=== PATIENT | male | born 1950 | race Caucasian/White ===

== ENCOUNTER 2018-08-31 08:44 | Day surgery (SDC) | payer MEDICARE, OTHER, SELFPAY ==
--- NOTE | 2018-08-30 17:16 | PM.PREOP ---
Pre-operative Note Interval Note Pre-op Check: Yes History & Physical Reviewed by Physician Changes: No
--- NOTE | 2018-08-30 17:16 | PM.OP.1 ---
Operative Date/Time/Diagnoses Date of procedure: 08/31/18 Time of procedure: 10:00 Procedure & Clinicians Procedure: Date of service: August 31 2018 Preoperative diagnoses: 1. Complex nuclear sclerotic and cortical Cataract. 2. 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 3. 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 Postoperative diagnoses: 1. Cataract removed with complex surgery with use of Malyugin ring and posterior chamber intraocular lens implant. Procedure: Phacoemulsification with posterior chamber intraocular lens implant Surgeon: Zahra Veliz MD Complications:None Specimen: None Implant:ZCBOO+23.0 Blood loss: None Anesthesia: Retrobulbar with monitored standby Anesthesiologist: Randall Phoenix M.D. Description of procedure: Patient is a 62 year old male with decreased vision due to cataract which is affecting activities of daily living. He wants surgery to improve vision. He will need complex cataract surgery due to floppy iris syndrome. He has taken to the operating room and given IV sedation. A retrobulbar block insert consisting of 6 cc of 2% xylocaine without epinephrine mixed half and half with 0.5% Marcaine with 1 cc of hyaluronidase added is placed between the medial and lateral 1/3 of the inferior orbital rim. Lid akinesia is obtain with 1% xylocaine with epinephrine infiltrated along the lid margin. The eye is manually massaged for 30 sec, prepped using Betadine solution, and draped in the usual sterile fashion. Temporal approach was made, a 1 mm side-port incision was made at the 12 oclock meridian. Phenylephrine 1.5% mixed with 1% xylocaine 0.2 cc was placed into the anterior chamber. Viscoat followed by Zina was then placed. A 2.6 mm clear incision with a 2.6 mm blade was placed at the 3 oclock meridian. A 7.0 mm Malygin ring was inspected and inserted into the eye in an unfolder. The iris was then sequentially hooked in every quadrant. A 360 degree capsulorrhexis style capsulotomy was then performed with a cystitome needle on a Healon. Hydrodelineation and hydrodissection were performed. The phacoemulsification unit is introduced, and sculpting notice used to groove the central lens. It is then removed in chopping mode. Epi nucleus is removed with epinuclear mode and irrigation aspiration was used to remove the peripheral cortex. The posterior capsule is polished. The intraocular lens is selected, inspected, power confirmed, and placed in the posterior chamber. The Malygin ring was then disinserted from the iris in all quadrants and then removed in its inserting device intact. The pupil was constricted. The wound was stromally hydrated and tested for leaks, there was none and was left sutureless. Vigamox 0.1 cc was placed into the anterior chamber. Kenalog 0.2 cc was placed in the superior subconjunctival space. A drop of antibiotic and was placed and the eye was patched and shielded. The patient was stable and returned to the recovery room in excellent condition. Dictated by: Zahra Veliz MD Copy to: [facility]
[2018-08-31] MEDS: PROPARACAINE 0.5% OPHTH SOL 2 DROPS EYE-OP (10:07)
[2018-08-31] MEDS: CATARACT EYE COMPOUND (10 DROPS/SYRINGE) 3 DROPS EYE-OP (10:14)
[2018-08-31 10:15] VITALS: BMI 26.2
[2018-08-31 10:30] VITALS: BP 102/62; PULSE 63; RESP 16; TEMP 36.4; O2SAT 96
--- NOTE | 2018-08-31 10:32 | SUR.PREOP ---
two sets of drops given per Elpidio/Dr. Veliz.
[2018-08-31] MEDS: BALANCED SALT IRRIG SOLN NO.2 15 ML IRRIG.SOLN IRR (11:44)
[2018-08-31] MEDS: CHONDROIDTIN/SOD HYALURONATE 1.05 ML SYRINGE INTRAOCULA (11:44)
[2018-08-31] MEDS: HYALURONATE SODIUM 10 MG/ML SYRINGE INJ (11:44)
[2018-08-31] MEDS: LIDOCAINE 1% W/EPI INJ 20 ML INJ (11:44)
[2018-08-31] MEDS: MOXIFLOXACIN OPHTH DROPS 3 ML BOTTLE 2 DROPS INJ (11:45)
[2018-08-31] MEDS: NEOMYCIN/POLY/DEX OPHTH OINT 1 APPLIC EYE-LEFT (11:45)
[2018-08-31] MEDS: OFLOXACIN 0.3% OPHTH 5 ML 2 DROPS EYE-LEFT (11:46)
[2018-08-31] MEDS: PHENYLEPHRINE/LIDOCAINE VIAL (OR) 0.2 ML EYE-OP (11:46)
[2018-08-31] MEDS: TRIAMCINOLONE 50 MG/5 ML VIAL INJ (11:46)
[2018-08-31] MEDS: BALANCED SALT IRRIG SOLN NO.2 500 ML, EPINEPHrine 1 MG IRR (11:47)
[2018-08-31] MEDS: LIDOCAINE 2% 4 ML, BUPIVACAINE 0.5% (PF) 4 ML, HYALURONIDASE 150 UNIT INJ (11:47)
[2018-08-31] MEDS: CARBACHOL 1.5 ML VIAL INJ (11:49)
[2018-08-31 12:35] VITALS: BP 100/62; PULSE 64; RESP 20; TEMP 36.6; O2SAT 98
== END 2018-08-31 12:39 | disposition home or self-care (01) ==
LOC: OR 08:49
PROVIDERS: Visit Provider Ophthalmology
PROC: (CPT 66982; principal; 2018-08-31 10:45)
DX: H25.12 Age-related nuclear cataract, left eye (principal); H21.81 Floppy iris syndrome; I50.9 Heart failure, unspecified; I10 Essential (primary) hypertension; I42.9 Cardiomyopathy, unspecified
CPT/HCPCS: 66982; J0171; J2250; J2704; J3010; J3301; J3470

== ENCOUNTER 2018-09-28 07:43 | Day surgery (SDC) | payer MEDICARE, OTHER, SELFPAY ==
--- NOTE | 2018-09-28 07:27 | PM.PREOP ---
Pre-operative Note Interval Note Pre-op Check: Yes History & Physical Reviewed by Physician Changes: No
[2018-09-28] MEDS: PROPARACAINE 0.5% OPHTH SOL 2 DROPS EYE-OP (07:57)
[2018-09-28 07:58] VITALS: BMI 25.9
[2018-09-28 08:06] VITALS: BP 94/59; PULSE 60; RESP 16; TEMP 36.3; O2SAT 98
[2018-09-28] MEDS: CATARACT EYE COMPOUND (10 DROPS/SYRINGE) 3 DROPS EYE-OP (08:10)
[2018-09-28] MEDS: MOXIFLOXACIN OPHTH DROPS 3 ML BOTTLE 2 DROPS INJ ×2 (09:12→09:15)
[2018-09-28] MEDS: HYALURONATE SODIUM 10 MG/ML SYRINGE INJ (09:12)
[2018-09-28] MEDS: OFLOXACIN 0.3% OPHTH 5 ML 2 DROPS EYE-RIGHT (09:12)
[2018-09-28] MEDS: CHONDROIDTIN/SOD HYALURONATE 1.05 ML SYRINGE INTRAOCULA (09:12)
[2018-09-28] MEDS: CARBACHOL 1.5 ML VIAL INJ (09:13)
[2018-09-28] MEDS: BALANCED SALT IRRIG SOLN NO.2 500 ML, EPINEPHrine 1 MG IRR (09:13)
[2018-09-28] MEDS: NEOMYCIN/POLY/DEX OPHTH OINT 1 APPLIC EYE-RIGHT (09:14)
[2018-09-28] MEDS: LIDOCAINE 1% W/EPI INJ 20 ML INJ (09:14)
[2018-09-28] MEDS: BALANCED SALT IRRIG SOLN NO.2 15 ML IRRIG.SOLN IRR (09:15)
[2018-09-28] MEDS: TRIAMCINOLONE 50 MG/5 ML VIAL INJ (09:16)
[2018-09-28] MEDS: LIDOCAINE 2% 4 ML, BUPIVACAINE 0.5% (PF) 4 ML, HYALURONIDASE 150 UNIT INJ (09:16)
[2018-09-28] MEDS: PHENYLEPHRINE/LIDOCAINE VIAL (OR) 0.2 ML EYE-OP (09:16)
[2018-09-28 09:39] VITALS: BP 92/65; PULSE 59; RESP 15; TEMP 36.3; O2SAT 97
--- NOTE | 2018-09-28 11:25 | P.OP_ITS ---
Operative Date/Time/Diagnoses Date of procedure: 09/28/18 Time of procedure: 08:45 Procedure & Clinicians Procedure: Date of service: September 28, 2018 Preoperative diagnoses: 1. Right nuclear sclerotic and cortical Cataract 2. Possible floppy iris syndrome due to the use of sympathomemetics. 3. Restless leg syndrome. Postoperative diagnoses: 1. Cataract removal with phacoemulsification with placement of posterior chamber intraocular lens. Procedure: Phacoemulsification with posterior chamber intraocular lens implant Surgeon: Zahra Veliz MD Complications: None Specimen: None Implant: ZCBOO+20.5 Blood loss: None Anesthesia: Retrobulbar with monitored standby Anesthesiologist: Hi Ohara M.D. Description of procedure: Patient is a male year old with decreased vision due to cataract which is affecting activities of daily living. He wants surgery to improve vision. He has taken to the operating room and given IV sedation. A retrobulbar block insert consisting of 6 cc of 2% xylocaine without epinephrine mixed half and half with 0.5% Marcaine with 1 cc of hyaluronidase added is placed between the medial and lateral 1/3 of the inferior orbital rim. Lid akinesia is obtain with 1% xylocaine with epinephrine infiltrated along the lid margin. The eye is manually massaged for 30 sec, prepped using Betadine solution, and draped in the usual sterile fashion. Temporal approach was made, a 1 mm side-port incision was made at the 7:30 position. Phenylephrine 1.5% mixed with 1% xylocaine 0.2 cc was placed into the anterior chamber. Iris size and tone was adequate and a Malygin ring was not used. Viscoat followed by Zina was then placed. A 2.6 mm clear incision with a 2.6 mm blade was placed at the 170 degree meridian. A 360 degree capsulorrhexis style capsulotomy was then performed with a cystitome needle on a Healon. Hydrodelineation and hydrodissection were performed. The phacoemulsification unit is introduced, and sculpting notice used to groove the central lens. It is then removed in chopping mode. Epi nucleus is removed with epinuclear mode and irrigation aspiration was used to remove the peripheral cortex. The posterior capsule is polished. The intraocular lens is selected, inspected, power confirmed, and placed in the posterior chamber. The pupil was constricted. The wound was stromally hydrated and tested for leaks, there was none and was left sutureless. Vigamox 0.1 cc was placed into the anterior chamber. Kenalog 0.2 cc was placed in the superior subconjunctival space. A drop of antibiotic and was placed and the eye was patched and shielded. The patient was stable and returned to the recovery room in excellent condition. He did have restless leg syndrome during the procedure was able to proceed without complication. Dictated by: Zahra Veliz MD Copy to: [facility] Same procedure as scheduled: Yes
== END 2018-09-28 09:49 | disposition home or self-care (01) ==
PROVIDERS: Visit Provider Ophthalmology
DX: H25.11 Age-related nuclear cataract, right eye (principal)
CPT/HCPCS: J0171; J2704; J3301; J3470